=== PATIENT | male | born 1975 | race Caucasian/White ===

== ENCOUNTER 2017-11-02 19:58 | Emergency (ER) | payer MEDICAID ==
[~2017-11-02] VITALS: Ht 177.8 cm; Wt 68.1 kg
[~2017-11-02 19:58] MED LIST: CEPH500C5 PO; CLIN-79 PO; IBUP-1986 PO; MUPI15CR TP; NAPR-1154 PO
[2017-11-02 20:07] VITALS: BP 115/85
[2017-11-02] MEDS ORDERED: diphenhydrAMINE 25mg capsule PO ONE (20:30)
[2017-11-02] MEDS ORDERED: proCHLORperazine 10 MG/2 ml inj IM ONE (20:30)
== END 2017-11-02 20:49 | disposition home or self-care (01) ==
LOC: ER 20:01
DX: R51 Headache (principal); F15.10 Other stimulant abuse, uncomplicated; Z98.890 Other specified postprocedural states
CPT/HCPCS: 96372; 99283; J0780; Q0163

== ENCOUNTER 2020-01-28 06:55 | Emergency (ER) | payer MEDICAID ==
[~2020-01-28] VITALS: Ht 177.8 cm; Wt 71.4 kg
[~2020-01-28 06:55] MED LIST changes: -CEPH500C5 PO; -CLIN-79 PO; +CLIN150C8 PO
[2020-01-28 07:06] VITALS: BP 164/99
[2020-01-28] MEDS ORDERED: DOXYCYCLINE 100MG CAPSULE PO STA (09:34)
[2020-01-28] MEDS ORDERED: LIDOcaine 1% W/epiNEPHrine 1:100,000 20ml vial IJ ONE (09:35)
[2020-01-28] MEDS ORDERED: TETanus/Pertussis (Acell)/Diphther VAC/PF (Tdap-Adult) 0.5ml syringe IMVAC ONE (09:35)
[2020-01-28] MEDS ORDERED: DOXY-1 PO (09:46)
[2020-01-28] MEDS ORDERED: NAPR-56 PO (09:46)
[2020-01-28] MEDS ORDERED: naproxen sodium 220mg tablet PO SCH ×2 (10:05→20:00)
[2020-01-28] MEDS ORDERED: naproxen sodium 220mg tablet PO ONE (10:05)
[2020-01-28] MEDS ORDERED: LIDOcaine 1% 30ml preserv. free vial IJ STA (10:18)
== END 2020-01-28 10:45 | disposition home or self-care (01) ==
LOC: ER 06:56
DX: K13.0 Diseases of lips (principal); L03.211 Cellulitis of face; F17.210 Nicotine dependence, cigarettes, uncomplicated; Z72.89 Other problems related to lifestyle; Z98.890 Other specified postprocedural states; Z79.899 Other long term (current) drug therapy
CPT/HCPCS: 10060; 87070; 87077; 87186; 90471; 90715; 99283

== ENCOUNTER 2022-10-12 20:46 | Emergency (ER) | payer MEDICAID ==
[~2022-10-12 20:46] MED LIST changes: +NAPR-56 PO
== END 2022-10-12 22:13 | disposition left against medical advice (07) ==
LOC: ER 20:46
DX: M79.89 Other specified soft tissue disorders (principal); Z53.21 Procedure and treatment not carried out due to patient leaving prior to being seen by health care provider; W19.XXXA Unspecified fall, initial encounter; Y93.89 Activity, other specified; Y92.89 Other specified places as the place of occurrence of the external cause; Y99.8 Other external cause status